=== PATIENT | female | born 1955 | race Caucasian/White ===

== ENCOUNTER → 2016-07-21 | Outpatient (CLI) | payer BC ==
[~2016-07-21] MED LIST: ALBUTEROL17 GM INH; ALPRAZOLAM PO; ALPRAZOLAM0.25 MG PO; ALPRAZOLAM0.5 MG PO; AMIODARONE HCL200 MG PO; AMIODARONE PO; AMITRIPTYLINE H50 MG PO; AMITRYPTYLINE PO; ASPIRIN PO; ASPIRIN81 M2 PO; AVANDIA PO; B-121000 MC1 PO; CLEOCIN PO; COMBIGAN EYE DRO5 ML OU; COZAAR25 MG PO; CYMBALTA PO; DIGOXIN125 MCG PO; DISCONTINUED MED; DOXYCYCLINE HY100 M1 PO; DULOXETINE HCL60 MG PO; ENBREL50 MG/ML PO; FOLIC ACID PO; FOLIC ACID1 MG PO; HUMALOG; HUMALOG100 U/M2 SUBQ; HUMALOG100 U/ML SUBQ; HUMALOG100 UNIT/1 SUBQ; HUMALOG100 UNIT/2; HUMIRA INJ; HUMIRA PEN40 MG/0.8; HUMIRA40 MG/0.1; HUMIRA40 MG/0.1 SQ; HYDROCODON-ACE1 EAC9 PO; LANOXIN PO; LANTUS100 U/ML; LANTUS100 U/ML INJ; LANTUS100 U/ML SUBQ; LANTUS100 UNITS/ SUBQ; LASIX20 MG PO; LEVEMIR100 U/ML SQ; LIPITOR20 MG PO; LIPITOR40 MG PO; LISINOPRIL PO; LISINOPRIL20 MG PO; LOPRESSOR PO; LOPRESSOR100 MG PO; LOSARTAN POTASS50 MG PO; LUMIGAN2.5 ML OU; LYRICA PO; LYRICA75 MG PO; METFORMIN PO; METHOTREXATE2.5 MG PO; METOPROLOL TAR100 MG PO; METOPROLOL TAR25 MG PO; NITROGLYCERIN0.4 MG SL; NORCO 7.5-3251 EACH PO; OXAPROZIN600 MG PO; PRED FORTE1 ML OU; PRINIVIL5 MG PO; SINGULAIR PO; SOTALOL AF80 M1 PO; VICODIN 5/500 T1 TAB PO; XANAX0.5 M1 PO; XANAX0.5 MG PO; XARELTO20 MG PO; XIIDRA1 EACH OU
--- NOTE | ~2016-07-21 | CT57 ---
[facility] A Service of [facility] RADIOLOGY TEXT RESULTS PATIENT: HAILEY JORDAN [facility] UNIT #: [id number] AGE: [address]: Jose Doe MD SEX: F ORDER DR: [id number] [place] [id number] [facility]. [place], [place] [address] [id number] MR#: [id number] [id number] #: [id number] NAME: HAILEY JORDAN : 1955 SEX: F STUDY DATE/TIME: 07/21/2016 12:45 UNIT: [facility] ROOM: STUDY DESCRIPTION: CT Chest Wo Cont Attending Physician: Jose Doe M.D. Referring Physician: Jose Doe M.D. Ordering Physician: Jose Doe M.D. Primary Care Physician: Julio Chanel M.D. MEDICAL IMAGING REPORT This report is preliminary unless electronic signature is present EXAM Chest CT without contrast. HISTORY Aortic aneurysm. Evaluate for enlargement over time. The patient is asymptomatic. COMPARISON STUDIES Comparison examination 07/01/2015. TECHNIQUE Axial images were obtained through the chest without contrast and evaluated at lung and mediastinal windows. This CT exam was performed with one or more of the following radiation dose reduction techniques: automatic exposure control, adjustment of mA and/or kV according to patient size, and iterative reconstruction. FINDINGS Chest images at mediastinal window show aortic tortuosity with mild atherosclerotic calcification. The ascending aorta measures 3.6 cm in maximum diameter, unchanged from the previous exam. The descending thoracic aorta measures 2.6 cm. This is also not significantly changed. No focal aneurysms are seen. There is no evidence of mediastinal or hilar adenopathy and there is no evidence of pleural or pericardial fluid. Coronary artery calcifications are seen and appear similar to the previous scan. There is a nonobstructing kidney stone on the right measuring 6 mm in diameter. There are punctate nonobstructing kidney stones on the left. Lung window imaging shows both lungs to be clear with no suspicious masses or infiltrates. IMPRESSION [facility] A Service of [facility] RADIOLOGY TEXT RESULTS PATIENT: HAILEY JORDAN LOCATION: [facility] : 51 UNIT #: [id number] AGE: [address]: Jose Doe MD SEX: F ORDER DR: Aortic ectasia unchanged from the previous scan. No new lesions are seen. Nephrolithiasis also again noted. Dictated by... Efrain Ortez M.D. THIS IS AN ELECTRONICALLY VERIFIED REPORT Efrain Ortez M.D. at 07/22/2016 1:05 PM KEIKO/aniket TD: 07/22/2016 09:08 JOB #: [id number] MEDICAL IMAGING REPORT Page 1 of 1 COPY
== END | disposition home or self-care (01) ==
LOC: CCAT 11:57
DX: I71.2 Thoracic aortic aneurysm, without rupture (principal); E11.9 Type 2 diabetes mellitus without complications; N20.0 Calculus of kidney
CPT/HCPCS: 71250

== ENCOUNTER 2016-08-12 17:02 | Observation (INO) | payer BC ==
--- NOTE | ~2016-08-12 | HP ---
Unit #: [id number] #: [id number] Patient: HAILEY JORDAN [id number] [address] [place], [place] [address] [id number] I MR#: [id number] NAME: HAILEY JORDAN. ROOM: 301 Age: 60 Sex: F Admission Date: 08/12/2016 : 1955 Attending Physician: Kory Madrigal M.D. Primary Care Physician: Julio Chanel M.D. HISTORY AND PHYSICAL HISTORY OF PRESENT ILLNESS This is a 60-year-old white female with the known history of having paroxysmal atrial fibrillation is on Xarelto, hypertension, diabetes, hyperlipidemia, rheumatoid arthritis, peripheral neuropathy, psoriasis, obstructive sleep apnea, who had a normal stress test last year, who came to the emergency room with multiple complaints but mostly complaining of having some left anterior chest wall pain about four days ago that was intermittent for about 12 hours and then developed a headache in the left upper frontal region along with some left jaw and neck pain, then it radiated down to the left arm and had some numbness and tingling in her left jaw and neck. The patient said she took some pain medication at home. It just continued to persist, especially the left jaw and facial numbness and tingling and pain and she continued with the headache. She said she did not have any difficulty with her speech. She did not feel like she had any facial droop. She could move all extremities well. The patient went to see her basting marker yesterday. They were concerned that she might be having stroke-like symptoms so they sent her to the ER for further evaluation and management. Cardiology admitted the patient because she did complain of the chest pain. She denies that when she just has the chest pain that it radiated up to the neck, bilateral jaw, shoulders, arms or elbows. She said the chest pain was on a different occasion. Then, when it went away, she developed some aching in the left side of her neck, up into the jaw and then eventually down into her left upper extremity with some numbness and tingling. She is having frequent nonproductive cough. No fever or chills. She just says she feels very fatigued. No increased lower extremity edema. Denies any paroxysmal nocturnal dyspnea or orthopnea but she does say she feels like she is more short of breath than usual. She is not under any treatment for any upper respiratory infection. PAST MEDICAL HISTORY 1. Paroxysmal atrial fibrillation on Xarelto. She had DC cardioversion in the past. 2. Hypertension. 3. Diabetes mellitus type 2. 4. Hyperlipidemia. 5. Rheumatoid arthritis. 6. Peripheral neuropathy. 7. Psoriasis. 8. Obstructive sleep apnea but noncompliant with CPAP. 9. In 2011, she had cardiac catheterization with ejection fraction 60%, revealed LAD 30% stenosis in the proximal, mid LAD 30% stenosis, first diagonal branch of the LAD 50% stenosis and the RCA mid 50% Unit #: [id number] #: [id number] Patient: HAILEY JORDAN stenosis. 10. In March 2016, Lexiscan Cardiolite stress test. No stress-induced ischemia. Ejection fraction 71%. 11. In 2015, 2D echo LVEF of 60%, moderate mitral regurgitation. 12. Nonsmoker. PAST SURGICAL HISTORY 1. Laser eye surgery. 2. Colonoscopy, normal. 3. Cardioversion x2. HOME MEDICATIONS 1. Amiodarone 100 mg p.o. daily. 2. Xarelto 20 mg p.o. daily. 3. Lopressor 50 mg p.o. b.i.d. 4. Amitriptyline 50 mg p.o. h.s. 5. Folic acid 3 mg p.o. daily. 6. Lantus 30 units subcu b.i.d. 7. Humalog sliding scale. 8. Humira infusion every other week. 9. Xanax 0.5 mg p.o. h.s. 10. Lyrica 75 mg p.o. t.i.d. p.r.n. 11. Losartan 50 mg p.o. daily. 12. Coolidge 7.5/325 one tablet p.o. t.i.d. p.r.n. 13. Combigan eye drops one drop both eyes b.i.d. 14. Lumigan eye drops one drop both eyes h.s. 15. Pred Forte one drop both eyes b.i.d. 16. Xiidra one drop both eyes b.i.d. 17. Lipitor 40 mg p.o. h.s. 18. Aspirin 81 mg daily. ALLERGIES Sulfonamides. SOCIAL HISTORY Patient lives in her home with her daughter. She works as an welder apprentice combination in an office. She has a sedentary job and she has a sedentary lifestyle. She has been a lifelong nonsmoker. No alcohol or illicit drug abuse. FAMILY HISTORY No known coronary artery disease in her immediate family members. REVIEW OF SYSTEMS CONSTITUTIONAL: Denies fever or chills. No recent weight gain or weight loss. Complains of a headache left frontal region. HEENT: No vision or hearing changes. No lymphadenopathy, thyromegaly, or difficulty swallowing. CARDIOVASCULAR: Had some left anterior chest wall pain. Denies palpitations. Denies increased lower extremity edema. PULMONARY: Increased shortness of breath with exertion. Denies paroxysmal nocturnal dyspnea or orthopnea. GASTROINTESTINAL: Denies nausea, vomiting, or diarrhea or abdominal pain. NEUROLOGIC: Has some numbness and tingling in the left side of her neck and down her left upper extremity. PHYSICAL EXAMINATION VITAL SIGNS: Blood pressure currently is 121/63, heart rate 60, respirations 18, temperature 98.3, O2 saturations 96% on room air. Unit #: [id number] #: [id number] Patient: HAILEY JORDAN GENERAL: Ms. Jordan is a 60-year-old white female in no acute respiratory distress. She is awake, alert, and oriented. NECK: Trachea midline. No thyromegaly, lymphadenopathy. Normal carotid upstrokes. No jugular venous distention. HEART: S1, S2. Regular rate and rhythm. No clicks, murmurs, or rubs. LUNGS: Diminished, otherwise, clear. ABDOMEN: Obese, soft, nontender. EXTREMITIES: Pedal pulses are palpable. No pedal edema. DIAGNOSTIC STUDIES LABORATORY: Glucose 166, BUN 23, creatinine 0.9, EGFR 68.6, sodium 136, potassium 4.3, chloride 99, CO2 is 30, calcium 8.7, magnesium today is 1.6, total protein 7.7, albumin 3.7, total bilirubin 0.7, AST 23, ALT 21, alkaline phosphatase 50. WBC 7.5, hemoglobin 12.8, hematocrit 38.8, platelets 258. Initial cardiac enzymes CKMB 1.4, troponin less than 0.05; CKMB 2.3, troponin less than 0.05. INR 1.1. Urinalysis has 3+ leukocyte esterase, 0.2 urobilinogen, 50-100 wbc's. Urine culture is pending. IMAGING: Chest x-ray shows cardiomegaly with a tortuous aorta, no active disease. CARDIOVASCULAR: EKG shows sinus bradycardia with ventricular rate of 51 beats per minute, possible Q waves in inferior leads and septal anterior leads, poor R-wave progression. Left axis deviation. IMPRESSION 1. Chest pain. History of nonobstructive coronary artery disease on a cardiac catheterization 2011 and in March 2016 had a normal Lexiscan Cardiolite stress test. Ejection fraction 72%. 2. Headache, left side. 3. Left jaw, facial numbness and tingling. 4. Paroxysmal atrial fibrillation on Xarelto. 5. Hypertension. 6. Diabetes mellitus type 2. 7. Hyperlipidemia. 8. Hypomagnesemia. 9. Peripheral neuropathy. 10. Psoriasis. 11. Obstructive sleep apnea. 12. Left ventricular ejection fraction of 60% with moderate mitral regurgitation on 2D echo in 2016. 13. Obesity. 14. Nonsmoker. PLAN 1. Patient's chest pain has been gone for a couple of days and her cardiac enzymes are negative. EKG does not show anything acute. Will ask Neurology to evaluate the patient for her headache and to rule out a TIA. Patient's blood pressure is running a little bit on the low side so, besides her Lopressor, we will decrease her dose of losartan to 25 mg p.o. daily. 2. Patient's magnesium level is low today. Will give magnesium oxide 400 mg p.o. b.i.d. times two days. 3. Continue patient on her current cardiac medications including statin and continue her aspirin. 4. Obtain a TSH and fasting lipid profile and evaluate. 5. On exam, there are no signs or symptoms of acute congestive heart failure. Unit #: [id number] #: [id number] Patient: HAILEY JORDAN 6. Further recommendations pending per Dr. Posada. Dictated by Madison Gonzales A.P.R.N. for Slade Winslow/nathan TD: 08/13/2016 18:02 JOB #: [id number] HISTORY AND PHYSICAL Page 1 of 1 X Madison Gonzales APRN X HISTORY AND PHYSICAL
--- NOTE | ~2016-08-12 | DS ---
Unit #: [id number] #: [id number] Patient: HAILEY JORDAN [id number] [address] [address] [id number] I MR#: [id number] NAME: HAILEY JORDAN. ROOM: 301 Age: 60 Sex: F Admission Date: 08/12/2016 : 1955 Discharge Date: 08/14/2016 Attending Physician: Kory Madrigal M.D. Primary Care Physician: Julio Chanel M.D. DISCHARGE SUMMARY ADMISSION DIAGNOSES 1. History of paroxysmal atrial fibrillation on Xarelto. 2. History of hypertension. 3. History of diabetes. 4. History of dyslipidemia. 5. History of rheumatoid arthritis. 6. History of peripheral neuropathy. 7. History of psoriasis. 8. History of obstructive sleep apnea. 9. Complaints of chest discomfort. 10. Complaints of headache. The patient has a history of a normal stress test in 2015. The patient also has a history of coronary catheterization in 2011 that showed an EF of 60%. The mid LAD had 30% stenosis. The proximal LAD had 30% stenosis. The first diagonal had 50% stenosis and the right coronary artery in the mid area had 50% stenosis. March 2016, Lexiscan Cardiolite stress test showed no stress induced ischemia. EF of 71%. Echo showed EF 60%, moderate mitral regurg. She was ruled out for myocardial infarction with two negative point of care troponins at least than 0.05. Repeat troponin was less than 0.03. Hemoglobin A1C was 8.9. Her cholesterol was checked. She had a total cholesterol of 199, triglycerides 362, LDL 92, HDL 35, TSH 0.51. Her Losartan was adjusted. She received magnesium oxide. Neurology, Dr. Mcclain, was consulted, felt that it was doubtful that this was a TIA, symptoms were not consistent with a TIA and recommended that she follow up with her primary neurologist for an outpatient intracranial vascular imaging. They signed off and stated patient could be discharged home. On date of discharge, the patient was stable. No further complaints. She was afebrile with a temp of 97.2, normal sinus rhythm. Blood pressure 174/88. She is being discharged home on the following medications: 1. Combigan eye drops twice daily. 2. Amiodarone 100 mg daily. 3. Prednisolone eye drops twice daily. 4. Xarelto 20 mg daily. 5. Lyrica 75 mg daily. 6. Amitriptyline 50 mg at bedtime. 7. Xanax 0.5 mg at bedtime. 8. Lopressor 50 mg twice a day. 9. Lipitor 40 mg daily. 10. We have changed her Cozaar to 25 mg daily. 11. Sliding scale insulin. 12. Lantus 30 units twice daily. Unit #: [id number] #: [id number] Patient: HAILEY JORDAN 13. Lumigan eye drops at bedtime. 14. Humira 40 mg every two weeks. 15. Aspirin 81 mg daily. 16. Hydrocodone 7.5/35 mg three times a day as needed for pain. 17. Folic acid 3 mg daily. 18. Xiidra eye drops twice daily. Dictated by... Kristi Verdugo, A.P.R.N. for Zaina Gamble M.D. OPHELIA/abner TD: 08/16/2016 09:37 JOB #: [id number] DISCHARGE SUMMARY Page 1 of 1 X X DISCHARGE SUMMARY
--- NOTE | ~2016-08-12 | EKG ---
PATIENT: HAILEY JORDAN UNIT #: [id number] Ventricular Rate: 51 BPM Atrial Rate: 51 BPM P-R Interval: 196 ms QRS Duration: 98 ms Q-T Interval: 470 ms QTC Calculation(Bezet): 433 ms P Troy: 31 degrees Calculated R Troy: -36 degrees Calculated T Troy: 5 degrees Diagnosis Line: Sinus bradycardia Diagnosis Line: Left axis deviation Diagnosis Line: Inferior infarct , age undetermined Diagnosis Line: Anterolateral infarct (cited on or before Diagnosis Line: 12-AUG-2016) Diagnosis Line: Abnormal ECG Diagnosis Line: When compared with ECG of 31-MAR-2016 06:34, Diagnosis Line: Premature atrial complexes are no longer Present Diagnosis Line: Questionable change in initial forces of Lateral Diagnosis Line: leads Diagnosis Line: Confirmed by BRITTNY ELAM MD ([id number]) on Diagnosis Line: 08/13/2016 11:09:54 PM INTERPRETING MD: ATTILA
--- NOTE | ~2016-08-12 | CR72 ---
[facility] A Service of [facility] RADIOLOGY TEXT RESULTS PATIENT: HAILEY JORDAN LOCATION: [facility] : 53 UNIT #: [id number] AGE: [address]: Kory Madrigal MD SEX: F ORDER DR: [id number] [facility] [place] [address] [place], [place] [address] [id number] MR#: [id number] Acc #: [id number] NAME: HAILEY JORDAN : 1955 SEX: F STUDY DATE/TIME: 08/12/2016 17:18 UNIT: [facility] ROOM: STUDY DESCRIPTION: CR Chest Single View Portable Ordering Physician: [facility] Primary Care Physician: Julio Chanel M.D. MEDICAL IMAGING REPORT This report is preliminary unless electronic signature is present EXAM Portable chest HISTORY Chest pain with shortness of breath, headache and left facial numbness and tingling beginning 6 days ago. TECHNIQUE Single AP view of the chest was obtained. COMPARISON STUDIES 05/04/2016. FINDINGS Cardiomegaly and a tortuous aorta are unchanged. Both lungs are clear with normal vascular markings and no pleural fluid is seen. IMPRESSION Cardiomegaly with a tortuous aorta. No active disease. No change from the previous exam. Dictated by... Efrain Ortez M.D. THIS IS AN ELECTRONICALLY VERIFIED REPORT Efrain Ortez M.D. at 08/12/2016 10:22 PM RLF/pcl TD: 08/12/2016 18:34 JOB #: [id number] [facility] A Service [facility] RADIOLOGY TEXT RESULTS PATIENT: HAILEY JORDAN LOCATION: [facility] : 51 UNIT #: [id number] AGE: [address]: Kory Madrigal MD SEX: F ORDER DR: MEDICAL IMAGING REPORT Page 1 of 1 COPY
--- NOTE | ~2016-08-12 | CO ---
Unit #: [id number] #: [id number] Patient: HAILEY JORDAN [id number] [facility] [address] [facility]. [place], [place] [address] [id number] MR#: [id number] NAME: HAILEY JORDAN ROOM: 301 Age: 60 Sex: F Admission Date: 08/12/2016 : 1955 Attending Physician: Kory Madrigal M.D. Primary Care Physician: Julio Chanel M.D. Requesting Physician: Karuna Posada M.D. Consultation Date: 08/13/2016 CONSULTATION REPORT REASON FOR CONSULTATION Headache and stroke-like symptoms. PATIENT IDENTIFICATION This is a 60-year-old right-handed female evaluated in room 301 at [facility]. SOURCE OF INFORMATION Patient as well as the medical record. HISTORY OF PRESENT ILLNESS This is a very pleasant 60-year-old right-handed female with past medical history of multiple comorbidities. She has CAD, paroxysmal atrial fibrillation, diabetic peripheral neuropathy, diabetes mellitus type 2, rheumatoid arthritis, psoriasis, hyperlipidemia and other medical issues. She presents to [facility] from her hub cutter's office for complaints of chest pain. The patient states that she was in her usual state of health until earlier this week. She states that around Tuesday or Tuesday she had a left-sided headache. She states that she has some history of migraines but has not had headaches in a long time. She denies any aura or visual symptoms but does report that she had sensitivity to light and sound with her headache. She states that the headache lasted that day, was not severe. However, the next day, she states she woke up and noticed that she was having some other associated symptoms. She complains specifically of some jaw pain, jaw numbness and some numbness around her cheek. She states it did not feel like neuropathy numbness but rather a tingling. She states that she had some neck pain and left arm pain and some left-sided chest pain. She states that the symptoms specifically the tingling, last for several hours and then went away on its own gradually. However, she states the next day she woke up and she had similar symptoms that persisted. She went to her routine office for her appointment and she was encouraged to go to the ER for further evaluation. She states that her symptoms essentially resolved. She denies any double vision, blurred vision, or loss of vision, any recent illness, injury or trauma, fever or chills. She denies any numbness or paresthesias of arms or legs or any weakness of the arms or legs. She does have chronic bilateral lower extremity numbness and pain from diabetic peripheral neuropathy but she says that has not changed in intensity or nature. She denies any speech or swallowing changes though she reports that she has had ongoing difficulty with swallowing around the level of her esophagus for a couple of years. She says that food gets stuck there sometimes but she denies any sudden swallowing difficulty or changes. She denies any trouble with getting her words out, Unit #: [id number] #: [id number] Patient: NIKKI,HAILEY A any slurred speech, any facial droop, eye drooping or weakness. On exam, she is nonfocal and has no cortical signs. No facial weakness or palsy. No extraocular palsy, speech difficulty and she states that she feels as though she is at her baseline. She denies any exacerbating or alleviating factors and reports that symptoms came on over the course of a few days and went away gradually and lasted for several hours at a time. PAST MEDICAL HISTORY 1. CAD with history of cardiac catheterization in 2011 that showed an LVEF of 60%. Proximal LAD stenosis of 30%, mid LAD 30% stenosis, first diagonal with LAD 50% and RCA 50% mid stenosis. In 2015, she had a 2D echocardiogram that showed an LVEF of 60% with moderate mitral regurgitation. 2. Paroxysmal atrial fibrillation with a history of DC cardioversion in September 2015. She is maintained on Xarelto. 3. Lexiscan Cardiolite stress test in December 2013 showed an LVEF of 65% and no stress-induced ischemia. 4. Diabetic peripheral neuropathy. 5. Diabetes mellitus type 2. She states she was diagnosed about 30 years ago. 6. Hypertension. 7. Hyperlipidemia. 8. Psoriasis. 9. Rheumatoid arthritis. 10. Obesity. 11. Nonsmoker. 12. Laser eye surgery. 13. Colonoscopy. 14. Cardioversion x2. 15. Obstructive sleep apnea. She has followed with Dr. Arreaga in the past. 16. Depression. 17. Anxiety. ALLERGIES Sulfonamides. HOME MEDICATIONS As per the medication reconciliation form include: 1. Amiodarone 100 mg p.o. daily. 2. Rivaroxaban 20 mg p.o. at night before dinner. 3. Metoprolol tartrate 50 mg p.o. b.i.d. 4. Amitriptyline 50 mg p.o. h.s. 5. Folic acid 3 mg p.o. daily. 6. Lantus insulin 30 units subcu b.i.d. 7. Humalog insulin sliding scale. 8. Humira every other week. 9. Alprazolam 0.5 mg p.o. h.s. 10. Pregabalin 75 mg p.o. t.i.d. It states p.r.n. on the medication reconciliation. 11. Losartan potassium 50 mg p.o. daily. 12. [place] 7.5/325 one tab p.o. t.i.d. p.r.n. pain. 13. Combigan eye drops one drop OU b.i.d. 14. Lumigan eye drops one drop OU h.s. 15. Prednisolone acetate one drop OU b.i.d. 16. Xiidra one drop OU b.i.d. 17. Atorvastatin 40 mg p.o. h.s. 18. Aspirin 81 mg p.o. daily. Unit #: [id number] #: [id number] Patient: YAMEL JORDANILA A FAMILY HISTORY Noncontributory to the presenting condition. SOCIAL HISTORY Patient lives with her family. She works as an hedge fund accountant. She states that she uses the assistance of a cane for walking at times. She states she is very unsteady due to her ongoing diabetic peripheral neuropathy. She is a lifelong nonsmoker, nondrinker and denies illicit drug use. REVIEW OF SYSTEMS A 14-point review of systems was done, pertinent positives are as discussed above, otherwise negative. PHYSICAL EXAMINATION VITAL SIGNS: Temperature 98.3, pulse 69, respirations 17, blood pressure 121/63, blood pressure on arrival was 122/53. Oxygen saturation 98%. Height 5 feet 0 inches, weight 194 pounds, BMI 38 NEUROLOGIC: She is currently awake, fully alert and oriented to person, place, and time as well as events. Her speech is very clear. She recognizes her daughter at the bedside. She is pleasant with a full general fund of knowledge. No deficits in recent and remote memory. She follows simple commands and two- and three-step commands without difficulty. No aphasia, dysarthria or apraxia noted. CRANIAL NERVES: She demonstrates full arguelles of vision, eyes are conjugate without ptosis or nystagmus. Extraocular movements are intact. Sensation to face and scalp is intact. Strength of muscles of facial expression is fully intact. Hearing is intact to conversation and finger rub. Tongue is midline. Uvula is midline. Palate elevation is normal. Head turning and shoulder shrug is unremarkable. Neck is supple. MOTOR: She demonstrates normal bulk, strength and tone. Everything is equal with no focal weakness appreciated. SENSORY: She is able to differentiate fully with no sensory extinction. She does exhibit decreased sensation of the lower extremities distally compared to proximally in a stocking glove-type distribution and this is chronic per the patient. GAIT: Deferred. She was able to stand independently but did not have any gait assistance devices, thus I did not have her walk around the room. She said she felt slightly unsteady which is normal for her given her chronic neuropathy. ROMBERG: Deferred. REFLEXES: Unable to elicit. Toes are equivocal. COORDINATION: Unremarkable. DIAGNOSTIC STUDIES LABORATORY: Troponin less than 0.05. Repeat troponin less than 0.05. CBC unremarkable. PT 11.3, INR 1.1, PTT 26.6. BMP unremarkable other than a glucose of 58. Estimated GFR 53.8. BNP is 60. Urinalysis is abnormal. She does have 2+ bacteria, 50-100 wbc's, occasional squamous cells. Culture is pending. She also has 3+ leukocyte esterase. TSH 0.51. Repeat BMP shows a glucose of 166. Her cholesterol is 199, triglycerides 362, LDL 92, HDL 35, magnesium 1.6. A1c is 8.9. IMAGING: Chest x-ray, on 08/12/2016, per Radiology report cardiomegaly with a tortuous aorta. No active disease. No change from previous exam. IMPRESSION 1. Chest pain. 2. Headache on the left side, possible migraine now resolved. Unit #: [id number] #: [id number] Patient: HAILEY JORDAN [place] 3. Left jaw and facial paresthesia not consistent at this time based upon history and description of neither transient ischemic attack nor ischemic stroke given presentation and distribution. 4. History of migraines. 5. Coronary artery disease. 6. History of paroxysmal atrial fibrillation maintained on Xarelto and aspirin. 7. Diabetes mellitus type 2 with diabetic peripheral neuropathy. Patient is on Lyrica and follows with outpatient neurology. 8. Rheumatoid arthritis. 9. Urinary tract infection, as per urinalysis. Culture is pending. Defer to primary team for treatment. Patient is asymptomatic and denies any urinary symptoms. PLAN I had a long discussion with the patient, also discussed with Dr. Mcclain. Based upon description at presentation and nature, this does not appear to be consistent or convincing for a transient ischemic attack or a stroke at this time. She certainly does have risk factors and we do recommend consideration of intracranial vascular imaging as an outpatient to assess her risk factors structurally. Otherwise, she is maximally treated on Xarelto and Lipitor and this specific event is not consistent with an acute ischemic event. Thus, she does not require further inpatient evaluation and recommend outpatient follow up with her neurologist and PCP. Consider intracranial vascular imaging with MR angiogram or CT angiogram as an outpatient. Again, she is on Xarelto, aspirin, and also intensive statin therapy with Lipitor. From a neurologic standpoint, she may be discharged later today per cardiology recommendation. The case was discussed with Dr. Mcclain and we will follow along with you while she is here. Nothing else to add currently and this has been discussed with the patient and she agrees. Thank you very much for allowing us to assist in the care of this patient. Dictated by... Bryon Santa/nathan TD: 08/13/2016 15:25 JOB #: [id number] CONSULTATION REPORT Page 1 of 1 X Payal Landa APRN X CONSULTATION REPORT
[~2016-08-12 17:02] MED LIST changes: -ALPRAZOLAM0.25 MG PO; -AMIODARONE HCL200 MG PO; -B-121000 MC1 PO; -COZAAR25 MG PO; -HUMALOG100 UNIT/1 SUBQ; -HUMIRA PEN40 MG/0.8; -LIPITOR20 MG PO; -LYRICA PO; -METOPROLOL TAR100 MG PO; -NORCO 7.5-3251 EACH PO
[2016-08-12 17:12] LABS: POC - CKMB 2.3 ng/mL (0.0-7.9); POC - TROPONIN <0.05 ng/mL (<=0.05)
[2016-08-12 17:29] LABS: BASOPHIL% 0.6 % (0-2.5); EOSINOPHIL# 0.2 X10e3 (0-0.7); EOSINOPHIL% 2.3 % (0.0-7.0); HEMATOCRIT 38.8 % (35.0-45.0); HEMOGLOBIN 12.8 gm/dL (12.0-16.0); LYMPHOCYTE# 3.7 X10e3 (1.0-3.5); MEAN CELL VOLUME 91.3 FL (83-96); MEAN CORPUSCULAR HEMOGLOBIN 30.1 PG (28-34); MEAN CORPUSCULAR HGB CONC 32.9 g/dL (30-36); MEAN PLATELET VOLUME 8.4 FL (6.5-11.5); MONOCYTE# 0.7 X10e3 (0-1.0); MONOCYTE% 7.7 % (3.0-12.0); NEUTROPHIL# 3.9 X10e3 (1.5-7.1); NEUTROPHIL% 46.4 % (40-75); PLATELET COUNT 258 X10e3 (140-420); RED BLOOD COUNT 4.25 X10e (3.90-5.30); RED CELL DISTRIBUTION WIDTH 13.4 % (11.0-15.5); WHITE BLOOD COUNT 8.5 X10e3 (4.0-10.5)
[2016-08-12 17:35] LABS: DIFF IND NO
[2016-08-12 17:45] LABS: INR 1.1; PARTIAL THROMBOPLASTIN TIME 26.6 SECONDS (23.5-31.3); PROTHROMBIN TIME (PATIENT) 11.3 SECONDS (9.6-11.5)
[2016-08-12 17:56] LABS: ALBUMIN SERUM 3.7 g/dL (3.5-5.0); BILIRUBIN, DIRECT 0.1 mg/dL (0.0-0.2); BILIRUBIN,INDIRECT 0.6 mg/dL (0.0-0.9); BILIRUBIN,TOTAL 0.7 mg/dL (0.2-2.0); CALCIUM SERUM 9.1 mg/dL (8.4-10.2); CREATININE SERUM 1.1 mg/dL (0.6-1.4); GLOM FILT RATE Estimated 53.8 mL/min (>60); POTASSIUM 4.5 mmol/L (3.5-5.1); PROTEIN TOTAL SERUM 7.7 g/dL (6.0-8.3)
[2016-08-12 18:41] LABS: POC - CKMB 1.4 ng/mL (0.0-7.9); POC - TROPONIN <0.05 ng/mL (<=0.05)
[2016-08-12 20:05] LABS: URINE SOURCE CATH
[2016-08-12 20:10] LABS: URINE APPEARANCE CLEAR; URINE BILIRUBIN NEG (NEG); URINE BLOOD NEG (NEG); URINE COLOR YELLOW; URINE GLUCOSE NEG (NEG); URINE KETONE NEG (NEG); URINE LEUKOCYTE ESTERASE 3+ (NEG); URINE NITRATE NEG (NEG); URINE PROTEIN NEG (NEG); URINE UROBILINOGEN 0.2 MG/DL (NEG)
[2016-08-12 20:14] LABS: CULTURE INDICATED? YES; URBCS1 AUWI 0-2 /[HPF] (0-2); URINE BACTERIA AUWI 2+ (NEGATIVE); URINE SQUAMOUS EPITHELIAL CELL OCC /[HPF]; UWBCS1 AUWI 50-100 (0-5)
[2016-08-13 06:52] LABS: BUN/CREATININE RATIO 25.55; CALCIUM SERUM 8.7 mg/dL (8.4-10.2); CREATININE SERUM 0.9 mg/dL (0.6-1.4); GLOM FILT RATE Estimated 68.6 mL/min (>60); MAGNESIUM 1.6 mg/dL (1.6-3.0); POTASSIUM 4.3 mmol/L (3.5-5.1)
[2016-08-14] MEDS ORDERED: COZAAR25 MG PO (13:33)
== END 2016-08-14 15:05 | disposition home or self-care (01) | DRG 313 ==
LOC: CED 17:02 → CEDOF 19:34 → C3A PCU 22:19
PROVIDERS: Emergency Medicine; Internal Medicine Cardiovascular Disease
DX: R07.89 Other chest pain (principal); R51 Headache; R20.8 Other disturbances of skin sensation; I25.10 Atherosclerotic heart disease of native coronary artery without angina pectoris; I48.0 Paroxysmal atrial fibrillation; Z79.01 Long term (current) use of anticoagulants; E11.42 Type 2 diabetes mellitus with diabetic polyneuropathy; Z79.4 Long term (current) use of insulin; M06.9 Rheumatoid arthritis, unspecified; N39.0 Urinary tract infection, site not specified; I34.0 Nonrheumatic mitral (valve) insufficiency; L40.9 Psoriasis, unspecified; Z79.82 Long term (current) use of aspirin; G47.33 Obstructive sleep apnea (adult) (pediatric); Z91.19 Patient's noncompliance with other medical treatment and regimen; Z88.2 Allergy status to sulfonamides
CPT/HCPCS: 36415; 71010; 80048; 80061; 80076; 81003; 82553; 82947; 83036; 83735; 83880; 84443; 84484; 85025; 85610; 85730; 87086; 93005; 99285; G0378; J1815

== ENCOUNTER 2016-11-16 08:12 | Observation (INO) | payer BC ==
[~2016-11-16] VITALS: Ht 152.4 cm; Wt 89.0 kg
--- NOTE | ~2016-11-16 | EKG ---
PATIENT: HAILEY JORDAN UNIT #: [id number] Ventricular Rate: 84 BPM Atrial Rate: 73 BPM QRS Duration: 100 ms Q-T Interval: 400 ms QTC Calculation(Bezet): 472 ms Calculated R [place]: -48 degrees Calculated T [place]: -7 degrees Diagnosis Line: Atrial fibrillation with a competing junctional Diagnosis Line: pacemaker Diagnosis Line: Left axis deviation Diagnosis Line: Inferior infarct (cited on or before 12-AUG-2016) Diagnosis Line: Anterior infarct (cited on or before 12-AUG-2016) Diagnosis Line: Abnormal ECG Diagnosis Line: When compared with ECG of 12-AUG-2016 17:08, Diagnosis Line: Atrial fibrillation has replaced Sinus rhythm Diagnosis Line: Vent. rate has increased BY 33 BPM Diagnosis Line: Confirmed by CHRIS ROBINS MD ([id number]) on 11/17/2016 Diagnosis Line: 7:35:11 PM INTERPRETING MD: JULIENNE WRIGHT
--- NOTE | ~2016-11-16 | OR ---
Unit #: [id number] #: [id number] Patient: HAILEY JORDAN [id number] [address] [address] [id number] I MR#: [id number] NAME: HAILEY JORDAN. ROOM: 573 Date of Procedure: 11/16/2016 Admission Date: 11/16/2016 Surgeon: Kory Madrigal M.D. : 1955 Attending Physician: Kory Madrigal M.D. Referring Physician: Kory Madrigal M.D. Primary Care Physician: Kory Madrigal M.D. OPERATIVE REPORT PROCEDURE PERFORMED Direct current shock cardioversion. INDICATIONS FOR PROCEDURE Atrial fibrillation. DESCRIPTION OF PROCEDURE The patient was brought to the cardiac catheterization lab, intravenous access was established, 2 mg of intravenous Versed and 100 mcg of intravenous fentanyl were given. Using 250 joules per second of biphasic current, DC shock cardioversion was performed, which successfully converted rhythm to normal sinus. No complications were encountered. Vital signs remained normal. The patient would be sent home on the following medicines: Xanax 0.25 mg b.i.d., amiodarone 200 mg b.i.d. for two weeks followed by 200 mg daily, Lipitor 20 mg daily, vitamin B12 1000 mcg monthly, Cymbalta 60 mg daily, Folic acid 1 mg daily, Lasix 40 mg daily, Humalog 15 units subcutaneous t.i.d., Humira every two weeks, [place] q.6 hours for pain, losartan 50 mg at bedtime, Lyrica 100 mg t.i.d., metoprolol 100 mg b.i.d., Ventolin 1 puff q.4 hours p.r.n. and Xarelto 20 mg daily. FINAL DIAGNOSES 1. Recurrent atrial fibrillation converted to normal sinus rhythm. 2. Hypertension. 3. Anxiety. 4. Diabetes mellitus. Dictated by... Slade Horner/thomas TD: 11/16/2016 12:14 JOB #: [id number] Unit #: [id number] #: [id number] Patient: HAILEY JORDAN OPERATIVE REPORT Page 1 of 1 X Kory Madrigal MD PROCEDURE OPERATIVE NOTE
--- NOTE | ~2016-11-16 | A ---
[facility] Nutrition Therapy DATE: 11/17/16 Patient: HAILEY Swartz NIKKI Physician: REBECA Address: [address] Room/Bed: [address] [place] [address], Zip: [place] [address] Admit Date: 11/16/16 Date of : [birth year] Height: 5 0 Weight: 196 89 NUTRITIONAL ASSESSMENT: REASON: PT SEEN FOR DIET EDUCATION RD PROVIDED WRITTEN AND VERBAL TYPE 2 DM MNT + 2 DAY SAMPLE MENU. PT DEMONSTRATED UNDERSTANDING OF THE TOPIC. PT REPORTED NO DIET QUESTIONS AT THIS TIME. RD TO REMAIN AVAILABLE. RD WILL F/U PER PROTOCOL Respectfully, ADONIS HEWITT MS, RD, LD Food and Nutritional Services [facility] cc: client file
[~2016-11-16 08:12] MED LIST changes: +COZAAR25 MG PO
[2016-11-16] MEDS ORDERED: LIPITOR20 MG PO (08:48)
[2016-11-16] MEDS ORDERED: ALPRAZOLAM0.25 MG PO (08:48)
[2016-11-16] MEDS ORDERED: AMIODARONE HCL200 MG PO (08:48)
[2016-11-16] MEDS ORDERED: B-121000 MC1 PO (08:49)
[2016-11-16] MEDS ORDERED: DULOXETINE HCL60 MG PO (08:49)
[2016-11-16] MEDS ORDERED: LASIX20 MG PO (08:50)
[2016-11-16] MEDS ORDERED: FOLIC ACID1 MG PO (08:50)
[2016-11-16] MEDS ORDERED: HUMALOG100 UNIT/1 SUBQ (08:51)
[2016-11-16] MEDS ORDERED: HUMIRA PEN40 MG/0.8 (08:51)
[2016-11-16 08:52] LABS: HEMATOCRIT 36.7 % (35.0-45.0); HEMOGLOBIN 12.2 gm/dL (12.0-16.0); MEAN CELL VOLUME 90.7 FL (83-96); MEAN CORPUSCULAR HEMOGLOBIN 30.1 PG (28-34); MEAN CORPUSCULAR HGB CONC 33.2 g/dL (30-36); RED BLOOD COUNT 4.05 X10e (3.90-5.30); RED CELL DISTRIBUTION WIDTH 13.4 % (11.0-15.5); WHITE BLOOD COUNT 8.3 X10e3 (4.0-10.5)
[2016-11-16] MEDS ORDERED: LOSARTAN POTASS50 MG PO (08:52)
[2016-11-16] MEDS ORDERED: NORCO 7.5-3251 EACH PO (08:52)
[2016-11-16] MEDS ORDERED: LYRICA PO (08:52)
[2016-11-16] MEDS ORDERED: ALBUTEROL17 GM INH (08:53)
[2016-11-16] MEDS ORDERED: METOPROLOL TAR100 MG PO (08:53)
[2016-11-16] MEDS ORDERED: XARELTO20 MG PO (08:53)
[2016-11-16 09:06] LABS: INR 1.3; PARTIAL THROMBOPLASTIN TIME 28.6 SECONDS (23.5-31.3); PROTHROMBIN TIME (PATIENT) 14.1 SECONDS (10.0-11.7)
[2016-11-16 09:16] LABS: BUN/CREATININE RATIO 14.44; CALCIUM SERUM 8.4 mg/dL (8.4-10.2); CREATININE SERUM 0.9 mg/dL (0.6-1.4); GLOM FILT RATE Estimated 68.1 mL/min (>60); POTASSIUM 4.2 mmol/L (3.5-5.1)
[2016-11-17] MEDS ORDERED: AMIODARONE PO (13:00)
== END 2016-11-17 15:06 | disposition home or self-care (01) | DRG 310 ==
LOC: CCVL 08:12 → C5C 14:13 → CCVL 14:13 → CEDOF 14:13 → C5C 14:15 → CEDOF 15:38 → C5C 15:38
PROVIDERS: Internal Medicine Cardiovascular Disease
DX: I48.91 Unspecified atrial fibrillation (principal); I25.10 Atherosclerotic heart disease of native coronary artery without angina pectoris; I11.9 Hypertensive heart disease without heart failure; E11.42 Type 2 diabetes mellitus with diabetic polyneuropathy; I34.0 Nonrheumatic mitral (valve) insufficiency; E78.5 Hyperlipidemia, unspecified; M06.9 Rheumatoid arthritis, unspecified; F41.9 Anxiety disorder, unspecified; Z79.4 Long term (current) use of insulin; Z88.2 Allergy status to sulfonamides; Z79.899 Other long term (current) drug therapy; Z79.01 Long term (current) use of anticoagulants
CPT/HCPCS: 36415; 80048; 82947; 85027; 85610; 85730; 92960; 93005; 94664; 94760; G0378; J0461; J1815; J2250; J2310; J3010